=== PATIENT | male | born 1980 | race African-American/Black ===

== ENCOUNTER 2016-09-22 10:56 | Emergency (ER) | payer MEDICAID ==
[2016-09-22] MEDS ORDERED: METHYLPRED SOD SUCC 125 MG/2 ML VIAL ONE (13:20)
[2016-09-22] MEDS ORDERED: hydrOXYzine 25 MG TAB ONE (13:20)
[2016-09-22] MEDS ORDERED: FAMOTIDINE 20 MG TAB ONE (13:20)
== END 2016-09-22 14:09 | disposition home or self-care (01) ==
LOC: ER 10:56
DX: L50.1 Idiopathic urticaria (principal); F17.290 Nicotine dependence, other tobacco product, uncomplicated
CPT/HCPCS: 96372